=== PATIENT | female | born 1950 | race Caucasian/White ===

== ENCOUNTER 2017-05-21 08:48 | Day surgery (SDC) | payer MEDICARE, BC ==
[~2017-05-21 08:48] MED LIST: RINGER'S SOLUTION,LACTATED 1,000 ML IV PRN; ceFAZolin SODIUM 1 GM VIAL IV PRN
[2017-05-21] MEDS ORDERED: BUPIVACAINE HCL 50 ML VIAL IJ ONE (10:35)
[2017-05-21] MEDS ORDERED: RINGER'S SOLUTION,LACTATED 1,000 ML IV ONE (11:05)
[2017-05-21 12:55] VITALS: BP 116/55
== END 2017-05-21 08:49 | disposition home or self-care (01) ==
LOC: AMB 08:48
PROVIDERS: ATTEND Orthopaedic Surgery
PROC: 0MBP0ZZ Excision of Left Knee Bursa and Ligament, Open Approach (ICD-10-PCS; principal; 2017-05-21 11:30)
DX: M70.42 Prepatellar bursitis, left knee (principal); I10 Essential (primary) hypertension; R73.01 Impaired fasting glucose; J44.9 Chronic obstructive pulmonary disease, unspecified; F41.9 Anxiety disorder, unspecified; G47.33 Obstructive sleep apnea (adult) (pediatric); E66.9 Obesity, unspecified; Z68.41 Body mass index [BMI] 40.0-44.9, adult; Z86.73 Personal history of transient ischemic attack (TIA), and cerebral infarction without residual deficits; Z87.891 Personal history of nicotine dependence

== ENCOUNTER 2017-11-05 08:23 | Inpatient (IN) | payer MEDICARE, BC ==
[~2017-11-05 08:23] MED LIST changes: +MORPHINE SULFATE 15 MG TABLET.SA PO PRN; +ROPIVACAINE HCL/PF 100 MG, KETOROLAC TROMETHAMINE 30 MG, EPINEPHrine 0.2 MG in NORMAL S... IJ PRN; +TRANEXAMIC ACID 1,000 MG in NORMAL SALINE 100 ML IV PRN
[2017-11-05] MEDS ORDERED: RINGER'S SOLUTION,LACTATED 1,000 ML IV ONE ×4 (11:22→15:10)
--- NOTE | 2017-11-05 12:27 | POSTOP NO ---
Date of Surgery: 11/05/17 Patient Tolerated the Procedure: Well Post Operative Diagnosis/Procedures: Sourcing Coordinator: Nuno Frances PA-C Post-operative Diagnosis: Right knee degenerative joint disease Finding: Above Procedure: Right total knee arthroplasty Estimated Blood Loss: 150 mL Specimens: Bone for disposal
[2017-11-05] MEDS ORDERED: ACETAMINOPHEN 500 MG TABLET PO PRN (12:30)
[2017-11-05] MEDS ORDERED: PROMETHAZINE HCL 5 MG in DEXTROSE 5 % IN WATER 50 ML IV PRN ×2 (12:30)
[2017-11-05] MEDS ORDERED: MAGNESIUM HYDROXIDE 30 ML UDC PO PRN (12:30)
[2017-11-05] MEDS ORDERED: ONDANSETRON HCL/PF 2 MG/ML VIAL IV PRN (12:30)
[2017-11-05] MEDS ORDERED: ZOLPIDEM TARTRATE 5 MG TABLET PO PRN (12:30)
[2017-11-05] MEDS ORDERED: diphenhydrAMINE HCL 50 MG/ML VIAL IV PRN (12:30)
[2017-11-05] MEDS ORDERED: MAG HYDROX/ALUMINUM HYD/SIMETH 30 ML UDC PO PRN (12:30)
--- NOTE | 2017-11-05 12:30 | OR ---
Operative Report - Dictated Report Narrative: Date: 11/05/2017 Preoperative diagnosis: Right Knee degenerative joint disease. Postoperative diagnosis: Right Knee degenerative joint disease. Procedure: Right Total knee arthroplasty. Surgeon: Vega Arriaga M.D. Scenic Artist: Nuno Frances PA-C Anesthesia: General With regional block and local periarticular joint injection. Complications: None Specimens: Bone for disposal. Estimated blood loss: 150 mL Tourniquet time: 39 Minutes at 350 millimeters of mercury. Retained implants: Depuy Attune size 5 right lugged cemented posterior stabilized femoral component. Size 6 fixed-bearing cemented tibial platform. 5 by 5 millimeter posterior stabilized cross-linked tibial insert. 35 millimeter medialized patella button. Indications: Mrs. Max is a 67-year-old female who has had left and right knee pain and arthrosis. This patient was followed in my clinic for period of time with significant complaints of right knee pain consistent with arthritic changes. She had failed conservative measures including, but not limited to, activity modification, passage of time, medications, and other conservative measures. Patient wished to proceed with surgical treatment. The risks, benefits, and alternatives were discussed in clinic. The risks of , blood clots, bleeding, infection, nerve/tendon blood vessel/ injury, malposition of components, intraoperative fracture, postoperative limited range of motion, persistent pain, failure of components, and need for additional procedures. Patient wished to proceed consent was obtained after answering all questions. Procedure: After marking the correct extremity on the floor, the patient was taken to the operating room. A timeout was performed. IV antibiotics consisting of Ancef were administered prior to the procedure. A regional followed by general anesthetic was induced by anesthesia, per my request, on the operative table with all bony prominences well-padded. Perry catheter was placed, and a bump was placed under the operative side buttock. SCDs and MODESTA hose were utilized on the nonoperative leg. A well-padded tourniquet was applied to the operative thigh. The operative leg was then pre-scrubbed with alcohol prepped, and draped in a standard sterile fashion. After exsanguinating the extremity with an Esmarch bandage, the tourniquet was inflated. After marking out the anterior knee for standard incision centered over the patella, the skin was incised and dissected down to the joint retinaculum. The joint retinaculum was marked out as well as the horizontal axis of the patella, and a standard medial parapatellar arthrotomy was then made. The most proximal aspect of the quadriceps tendon and the patella tendon insertion were protected from release. A partial synovectomy was performed as well as a resection of the infrapatellar fat pad. The distal femoral fat pad proximal to the trochlea was also resected using cautery. The soft tissues were elevated off the medial aspect of the proximal tibia using a Lynn elevator ensuring that we did not transect the medial collateral ligament. Upon initial evaluation range of motion was approximately 0 degrees to 120 degrees of flexion. There were signs of advanced arthrosis in the medial, lateral, and patellofemoral joint spaces. There were large marginal osteophytes which were removed with a rongeur. The knee was hyperflexed and the patella was tucked laterally. Protecting the surrounding soft tissues with Homans, an entry drill was placed down the femoral canal using Whitesides line for guidance into the entry point. The intramedullary femoral alignment titus was utilized in order to cut the distal femur in 5 degrees of valgus resecting 10 millimeters of bone. Next the distal femur was sized to a size 5. A posterior referencing guide was utilized to place the distal femoral cutting block in 3 degrees of external rotation. This was pinned into place. The rotation was confirmed both visually and based on anatomic landmarks. The 4 in 1 cutting jig of the appropriate size was utilized in order to make all bony cuts. The angle wing was used to ensure no notching. Retractors were utilized in order to protect surrounding soft tissues. This cut did not result in any excessive notching. We then cut the box centered over the distal femur. This allowed for resection of the anterior and posterior cruciate ligaments. I then turned my attention to the preparation of the tibia. Using an extra medullary tibial alignment titus, 3 millimeters of bone was resected off the medial articular surface. This was made perpendicular to the mechanical axis of the joint with the alignment titus centered over the ankle mortise. The alignment titus was checked and was noted to be parallel to the mechanical axis, centered over the medial one third of the tibial tubercle, paralleling the anterior surface of the tibia. We then turned our attention to the remaining meniscus and soft tissues. These were removed while protecting the surrounding ligaments and soft tissues. The marginal osteophytes off the anterior, posterior, medial, lateral aspects of the femur and tibia were removed. The tibia was sized out to a size 6. Next the tibia was drilled and punched in an externally rotated position. Next the trial femur and a series of tibial inserts were utilized in order to allow for full extension and maximal flexion. It was found that a 5 millimeter insert gave the best range of motion and stability at multiple flexion points as well as at full extension there was less than 2 mm of gapping both medially and laterally. There is minimal anterior translation with the knee at 90 degrees of flexion and no signs of being able to dislocate the knee. The patella was then prepared. The initial thickness was 21 millimeters. This was reamed down to 11 millimeters parallel to the anterior surface of the patella. It was sized out to a size 35 medialized patella button. This was then drilled and trialed. Without any medial restraint the patella tracked appropriately and did not sublux or dislocate. At this point, it was felt these were the appropriate sized implants, and all trials were removed. The standard periarticular joint injection consisting of ropivacaine, Toradol, and epinephrine were injected into the periarticular joint tissues. The bony surfaces were thoroughly irrigated with a pulsatile- suction saline irrigation device. A bone plug from the prior resected anterior chamfer cut was placed into the drill hole at the distal femur. The bony surfaces were then dried in preparation for placement of the implants. The cement was vacuum mixed per the field care manager's instructions. The cement was placed on the dry bony surfaces and posterior aspect of the implants. The implants were impacted into place, removing all extruded cement. At this point anesthesia administered tranexamic acid per protocol intravenously. The knee was placed in extension with axial loading with the trial insert while the cement cured. While loading the joint it was noted there was significant acute increase in bloody drainage and what sounded like a giving way of the tourniquet and thus it was felt that we had a venous tourniquet at this point and thus the tourniquet was released. After releasing the tourniquet there was significant decrease in bloody drainage and there do not appear to be any signs of excessive isolated bleeding or pulsatile bleeding vessels. Once the cement cured, all remaining extruded cement was removed. The knee was placed through a range of motion with the trial insert to ensure appropriate range of motion and stability. Final range of motion was approximately 0 to 120 degrees. The knee was again thoroughly irrigated with pulsatile saline lavage. The final polyethylene insert was then impacted into place ensuring no retained soft tissues. The remaining periarticular joint injection was injected. A medium Hemovac drain was placed exiting superior laterally. The knee was then placed over a triangle and the arthrotomy was closed with interrupted #1 Vicryl after thoroughly irrigating the joint. The deep and subcutaneous tissues were closed with interrupted 0 and 3-0 Vicryl respectively. Skin was closed with a running subcutaneous 3-0 Monocryl and Prineo Dermabond dressing. 4 x 4's, Sof-Rol, and a full leg Connor wrap were applied. All sponge, needle, blade, and instrument counts were correct prior to closing the wounds. Postoperative condition: The patient was awoken and transferred to the postanesthesia care unit in stable condition. Plan is to be admitted to the inpatient medical/surgical floor postoperatively for 24 hours of IV antibiotics , physical therapy, occupational therapy, and medical comanagement. Patient will be weightbearing as tolerated with range of motion as tolerated. DVT prophylaxis will be with SCDs, MODESTA hose, and pharmacological anticoagulation. Anticipated hospital stay is approximately 1-3 days.
[2017-11-05] MEDS ORDERED: ALBUTEROL SULFATE/IPRATROPIUM 3 ML NEBU IH PRN (12:32)
[2017-11-05] MEDS ORDERED: HYDROmorphone HCL 2 MG/ML VIAL IV PRN (12:43)
[2017-11-05] MEDS ORDERED: ALBUTEROL SULFATE 2.5 MG/0.5 ML VIAL.NEB IH PRN (12:45)
--- NOTE | 2017-11-05 12:53 | OR ---
Anesthesia Procedure Note - Anesthesia Procedure Note Date of Service: 11/05/17 Narrative: Vital Signs - Last Taken Temp 36.7 C 11/05/17 10:10 Pulse 84 11/05/17 10:10 Resp 16 11/05/17 10:10 BP 122/56 11/05/17 10:10 Pulse Ox 93 11/05/17 10:10 O2 Oxygen Delivery Method Room Air 11/05/17 12:51 ANESTHESIA PROCEDURE NOTE Date of Procedure: 11/05/2017. Time of procedure: 1010. Performed by: Raymond Fuller CRNA Registered Pharmacy Technician: None. Preprocedure diagnosis: Right knee degenerative joint disease. Post procedure diagnosis: Same. Procedure: Right ultrasound guided adductor canal block for postoperative analgesia. Indications: The patient is a 67 -year-old female, requesting a right ultrasound -guided abductor canal block for postoperative analgesia related to right total knee arthroplasty. Findings: See below. Details of the procedure: The tissue over the intended target site was cleansed with ChloraPrepand draped in a sterile fashion. 2 ml Lidocaine 1 % was infiltrated to the skin and subcutaneous tissue at the intended target site. Under sterile technique and ultrasound guidance a 18-gauge Tuohy needle was inserted through the right sartorius muscle to the saphenous nerve just anterior and medial to the superficial femoral artery and vein. 15 mL's of 0.5% bupivacaine was injected after negative aspiration for blood. Needle tip and spread of local anesthetic surrounding the saphenous nerve was observed throughout the injection with real time ultrasound visualization. The Tuohy needle was then removed intact. No complications were noted. The images were retained in the Hospital medical database . EBL: Minimal. Fluids: N/A. Specimen: N/A. Post procedure condition: The patient tolerated the procedure well. No complications were noted. Thank you for this consultation. Raymond Fuller CRNA
[2017-11-05] MEDS: DEXTROSE 5%-LACTATED RINGERS 1,000 ML IV PRN (13:38)
[2017-11-05] MEDS: KETOROLAC TROMETHAMINE 15 MG/ML VIAL IV SCH ×2 (13:42→17:43)
[2017-11-05] MEDS: GABAPENTIN 100 MG CAPSULE PO SCH ×2 (13:58→17:43)
[2017-11-05] MEDS: oxyCODONE HCL/ACETAMINOPHEN 1 TAB TABLET PO PRN ×2 (14:56→19:50)
[2017-11-05] MEDS: ceFAZolin SODIUM 1 GM in DEXTROSE 5 % IN WATER 100 ML IV SCH ×4 (14:57→19:49)
[2017-11-05] MEDS: ZOLPIDEM TARTRATE 10 MG TABLET PO SCH (21:14)
[2017-11-05] MEDS: SENNOSIDES/DOCUSATE SODIUM 1 TAB TABLET PO SCH (21:14)
[2017-11-05] MEDS: MORPHINE SULFATE 15 MG TABLET.SA PO SCH (21:14)
[2017-11-05] MEDS: SIMVASTATIN 40 MG TABLET PO SCH (21:15)
[2017-11-05] MEDS ORDERED: NORMAL SALINE 500 ML IV PRN (21:28)
[2017-11-06] MEDS: DEXTROSE 5%-LACTATED RINGERS 1,000 ML IV PRN (00:41)
[2017-11-06] MEDS: KETOROLAC TROMETHAMINE 15 MG/ML VIAL IV SCH ×4 (00:42→19:28)
[2017-11-06] MEDS: ceFAZolin SODIUM 1 GM in DEXTROSE 5 % IN WATER 100 ML IV SCH ×2 (02:31)
[2017-11-06 06:27] LABS: Hematocrit 31.9 % (37.0-47.0); Hemoglobin 10.3 gm/dL (12.5-16.0); Mean Cell Volume 90.9 fl (78-100); Mean Corpuscular Hemoglobin 29.3 pg (27-31); Mean Corpuscular Hgb Conc 32.3 g/dl (32-36); Mean Platelet Volume 10.5 fl (6.0-9.5); Platelet Count 268 K/mm3 (150-450); Red Blood Count 3.51 M/mm3 (4.2-5.4); Red Cell Distribution Width 14.9 % (11.5-14.0); White Blood Count 12.1 K/mm3 (4.0-10.5)
[2017-11-06 06:57] LABS: Anion Gap 11.3 mmol/L (6.8-13.8); BUN/Creatinine Ratio 15.5 (9.0-21.6); Calcium * 8.4 mg/dL (7.9-10.9); Carbon Dioxide 29.9 mmol/L (24-32.6); Estimated Creat Clear 45.6; Potassium 4.2 mmol/L (3.4-4.6)
[2017-11-06] MEDS: MORPHINE SULFATE 15 MG TABLET.SA PO SCH ×2 (08:07→20:24)
[2017-11-06] MEDS: GABAPENTIN 100 MG CAPSULE PO SCH ×3 (08:07→16:32)
[2017-11-06] MEDS: VENLAFAXINE HCL 37.5 MG CAP.SR.24H PO SCH (08:07)
[2017-11-06] MEDS: LISINOPRIL 5 MG TABLET PO SCH (08:07)
[2017-11-06] MEDS: TIOTROPIUM BROMIDE 5 CAP INHALER IH SCH (08:08)
--- NOTE | 2017-11-06 08:24 | PN ---
Subjective - Date and Time Seen Date: 11/06/17 Time: 08:19 Subjective Narrative: Patient reports she is doing well. Feels a bit "groggy". Pain controlled. Has been able to ambulate with PT. Reports no nausea. No complaints. Objective Objective Narrative: Bandages C/D/I. N/V intact. N/V intact RLE. Calf supple. Joceline's negative. PF/DF ankle RLE. - Vitals Vitals: Last Vital Signs Temp 37 C 11/06/17 07:41 Pulse 88 11/06/17 08:07 Resp 18 11/06/17 07:41 BP 112/57 11/06/17 08:07 Pulse Ox 98 11/06/17 07:41 - Abnormal Lab Findings Abnormal Lab Findings: Abnormal Lab Results 11/06/17 11/06/17 Range/Units 06:17 06:17 WBC 12.1 H (4.0-10.5) K/mm3 RBC 3.51 L (4.2-5.4) M/mm3 Hgb 10.3 L (12.5-16.0) gm/dL Hct 31.9 L (37.0-47.0) % RDW 14.9 H (11.5-14.0) % MPV 10.5 H (6.0-9.5) fl Est GFR (Non-Af Amer) 50 L (60-130) mL/min Random Glucose 127 H (70-110) mg/dL - Exam Constitutional: Present: Alert, Oriented x3, Cooperative, No distress Cauti Physician Documentation - Urinary Catheter Management 2-way Urethral Date of Insertion: 11/05/17 Time of Insertion: 11:00 Assessment/Plan - Problems/Diagnosis (1) Status post total right knee replacement Problem: Acute Narrative: PT, pain control, anticoagulation, discussed with nursing to watch drain output for decreasing trend before pulling today (2) Acute blood loss anemia Problem: Acute Narrative: observation (3) History of stroke Problem: Chronic (4) Hypertension Problem: Chronic (5) Sleep apnea Problem: Chronic (6) Arthritis Problem: Acute
--- NOTE | 2017-11-06 08:26 | PN ---
Subjective - Date and Time Seen Date: 11/06/17 Time: 08:23 Subjective Narrative: Patient says she walked PT yesterday. Afebrile. Tmax 37.3 Objective - Review of Systems Generalized/Overall Review: Denies: Chills, Fever Respiratory: Denies: Cough, Shortness of Breath, Orthopnea Cardiac: Denies: Chest Pain, Edema, Palpitations Abdominal: Denies: Nausea, Vomiting Genitourinary Symptoms: Denies: Urgency, Frequency Musculoskeletal Complaints: Reports: Joint Pain - Vitals Vitals: Last Vital Signs Temp 37 C 11/06/17 07:41 Pulse 88 11/06/17 08:07 Resp 18 11/06/17 07:41 BP 112/57 11/06/17 08:07 Pulse Ox 98 11/06/17 07:41 - Abnormal Lab Findings Abnormal Lab Findings: Abnormal Lab Results 11/06/17 11/06/17 Range/Units 06:17 06:17 WBC 12.1 H (4.0-10.5) K/mm3 RBC 3.51 L (4.2-5.4) M/mm3 Hgb 10.3 L (12.5-16.0) gm/dL Hct 31.9 L (37.0-47.0) % RDW 14.9 H (11.5-14.0) % MPV 10.5 H (6.0-9.5) fl Est GFR (Non-Af Amer) 50 L (60-130) mL/min Random Glucose 127 H (70-110) mg/dL - Exam Constitutional: Present: Alert, Oriented x3, Cooperative ENT Exam: Present: hearing grossly normal Neck: Present: supple Respiratory: Present: decreased breath sounds, No rales, No wheezing Cardiovascular/Chest: Present: regular rate, rhythm, no JVD, no murmur Abdomen: Present: Normal bowel sounds, soft, nontender, nondistended Extremity: Present: no pedal edema, no calf tenderness Cauti Physician Documentation - Urinary Catheter Management 2-way Urethral Date of Insertion: 11/05/17 Time of Insertion: 11:00 Assessment/Plan - Problems/Diagnosis (1) Status post total right knee replacement Problem: Acute Narrative: POD # 1. continue with PT/OT (2) Acute blood loss anemia Problem: Acute Narrative: will monitor (3) History of stroke Problem: Chronic Narrative: continue home medications (4) Hypertension Problem: Chronic Qualifiers: Hypertension type: essential hypertension Qualified Code(s): I10 - Essential (primary) hypertension Narrative: continue with home medications (5) Sleep apnea Problem: Chronic Narrative: continue with CPAP
[2017-11-06] MEDS: oxyCODONE HCL/ACETAMINOPHEN 1 TAB TABLET PO PRN ×2 (11:28→19:29)
[2017-11-06] MEDS: ENOXAPARIN SODIUM 40 MG/0.4 ML SYRG SC SCH (11:29)
[2017-11-06] MEDS: ZOLPIDEM TARTRATE 10 MG TABLET PO SCH (20:24)
[2017-11-06] MEDS: SENNOSIDES/DOCUSATE SODIUM 1 TAB TABLET PO SCH (20:24)
[2017-11-06] MEDS: SIMVASTATIN 40 MG TABLET PO SCH (20:25)
[2017-11-07] MEDS: KETOROLAC TROMETHAMINE 15 MG/ML VIAL IV SCH ×2 (00:56→07:21)
[2017-11-07 09:32] LABS: Hematocrit 28.1 % (37.0-47.0); Hemoglobin 9.2 gm/dL (12.5-16.0); Mean Cell Volume 88.9 fl (78-100); Mean Corpuscular Hemoglobin 29.1 pg (27-31); Mean Corpuscular Hgb Conc 32.7 g/dl (32-36); Mean Platelet Volume 10.1 fl (6.0-9.5); Platelet Count 254 K/mm3 (150-450); Red Blood Count 3.16 M/mm3 (4.2-5.4); Red Cell Distribution Width 15.2 % (11.5-14.0); White Blood Count 13.4 K/mm3 (4.0-10.5)
[2017-11-07 09:39] LABS: Anion Gap 11.7 mmol/L (6.8-13.8); BUN/Creatinine Ratio 12.4 (9.0-21.6); Calcium * 8.4 mg/dL (7.9-10.9); Carbon Dioxide 28.3 mmol/L (24-32.6); Estimated Creat Clear 22.6
[2017-11-07 09:40] LABS: Total Cells Counted 100
[2017-11-07] MEDS: MORPHINE SULFATE 15 MG TABLET.SA PO SCH ×2 (09:43→21:36)
[2017-11-07] MEDS: LISINOPRIL 5 MG TABLET PO SCH (09:43)
[2017-11-07] MEDS: GABAPENTIN 100 MG CAPSULE PO SCH ×3 (09:43→17:40)
[2017-11-07] MEDS: VENLAFAXINE HCL 37.5 MG CAP.SR.24H PO SCH (09:43)
[2017-11-07] MEDS: TIOTROPIUM BROMIDE 5 CAP INHALER IH SCH (09:44)
[2017-11-07 10:16] LABS: Band 2 % (0-2.0); Basophil 1 % (0-1); Eosinophil 7 % (0-3); Lymphocyte 29 % (20-51); Monocyte 4 % (0-9); Neutrophil 57 % (42-75); Neutrophil # 7.6 K/mm3 (1.3-6.0); Platelet Estimate Normal (NORMAL); RBC Morphology Normal (NORMAL)
--- NOTE | 2017-11-07 10:58 | DS ---
(1) Status post total right knee replacement Problem: Acute (2) Acute blood loss anemia Problem: Acute (3) History of stroke Problem: Chronic (4) Hypertension Problem: Chronic Qualifiers: Hypertension type: essential hypertension Qualified Code(s): I10 - Essential (primary) hypertension (5) Sleep apnea Problem: Chronic (6) Arthritis Problem: Acute Description of Stay: Mrs. Max was admitted to the floor after undergoing right total knee arthroplasty. Tolerated this well. Was admitted to the floor postoperatively for 24 hours of IV antibiotics, pain control, medical comanagement, and occupational and physical therapy. OT and PT were consulted to assist with activities of daily living and ambulation. Was made weightbearing as tolerated with range of motion as tolerated. Pain was initially controlled with IV regimen. This was transitioned to oral once tolerating a by mouth intake. Was resumed on home diet and medications. Had a Perry catheter inserted and the operating room which was discontinued on postoperative day 1. A drain was placed intraoperatively into the knee which was discontinued on postoperative day 1. Lovenox SCD and MODESTA hose were utilized for DVT prophylaxis. Vital signs remained stable to the hospital course. Serial labs were obtained which showed a final hemoglobin of 9.2 grams. BMP was reviewed and was stable. Physical examination throughout the hospital course showed an extremity that had sensation that was intact to light touch, palpable pulses, a benign wound, motor intact to the toes, ankle, and knee. Knee range of motion was approximately 5 degrees to 75 degrees. Once an oral pain regimen was tolerated and physical therapy goals were met, it was felt that they were stable for discharge to home. Instructions: Continue with weightbearing as tolerated and range of motion as tolerated. It is OK to shower on the wound if it is not draining. If you note any drainage or for comfort you can cover with dry gauze and tape. Change every 2-3 days as needed. Continue with physical therapy. Resume home diet. Report any fever over 101.5 Fahrenheit, uncontrolled pain, increased drainage, foul odor of drainage, new or increased calf pain or shortness of breath, or any other significant complaints. A 325mg dialy aspirin will be started after finishing anticoagulation if not allergic. Continue with MODESTA hose on the operative extremity until instructed otherwise. No driving until instructed otherwise. Follow up in approximately 10-14 days. Procedures Performed: see notes below List Procedures: Right total knee arthroplasty Discharge Location: Home Disposition: Home self-care Condition: Good Discharge Activity: Activity as tolerated, Weight bearing, Other - with walker Discharge Diet: Low salt Chcf Therapy: Physicial Therapy Referrals: Shay Noble MD [Primary Care Provider] - Additional Patient Instructions (free text): Physical Therapy at [facility] on Sunday11/09/17 at 10:[address]am. Dr Arriaga follow up Orthopedic appt on Monday 11/27 at 10:45am. Prescriptions (Any new or edited meds): Enoxaparin Sodium [Lovenox] 40 mg SC Q24H #7 disp.syrin Morphine Sulfate [Ms Contin] 15 mg PO Q12H #20 tablet.sa oxyCODONE HCL/ACETAMINOPHEN [Percocet 5 MG/325 MG] 2 tab PO Q4H PRN #90 tablet PRN Reason: Moderate Pain (Pain Scale 4-6) Sennosides/Docusate Sodium [Senokot-S] 2 tab PO HS #20 tablet Complete Home Medications List: Complete Home Medication List: Lisinopril [Prinivil] 5 mg PO DAILY 08/14/12 Simvastatin [Zocor] 40 mg PO DAILY 08/14/12 Venlafaxine HCl [Effexor Xr] 37.5 mg PO DAILY 08/14/12 Tiotropium Elberta [Spiriva] 1 cap IH DAILY 08/21/13 Acetaminophen [Tylenol] 1,000 mg PO DAILY PRN 05/17/17 Albuterol Sulfate [Proair Hfa] 2 puff IH Q4H PRN 05/17/17 Gabapentin [Neurontin] 100 mg PO TID 05/17/17 Zolpidem Tartrate [Ambien] 10 mg PO HS 05/17/17 Albuterol Sulfate/Ipratropium [Duoneb 2.5-0.5MG/3ML Soln] 3 ml IH QID PRN Enoxaparin Sodium [Lovenox] 40 mg SC Q24H #7 disp.syrin 11/07/17 Morphine Sulfate [Ms Contin] 15 mg PO Q12H #20 tablet.sa 11/07/17 Sennosides/Docusate Sodium [Senokot-S] 2 tab PO HS #20 tablet 11/07/17 oxyCODONE HCL/ACETAMINOPHEN [Percocet 5 MG/325 MG] 2 tab PO Q4H PRN #90 tablet 11/07/17 Amb Orders for Discharge: PT Evaluation and Treatment Facility: [facility], Location: Rehabilitation Services
--- NOTE | 2017-11-07 11:00 | PN ---
Subjective - Date and Time Seen Date: 11/07/17 Time: 10:57 Subjective Narrative: Patient- I just feel tired this morning. Afebrile . Tmax 37. Objective - Review of Systems Generalized/Overall Review: Reports: Weakness, Fatigue Respiratory: Denies: Cough, Shortness of Breath Cardiac: Denies: Chest Pain, Edema, Palpitations Abdominal: Denies: Nausea, Vomiting Genitourinary Symptoms: Denies: Urgency, Frequency Musculoskeletal Complaints: Reports: Joint Pain - Vitals Vitals: Last Vital Signs Temp 36.7 C 11/07/17 10:39 Pulse 88 11/07/17 10:39 Resp 18 11/07/17 10:39 BP 134/76 11/07/17 10:39 Pulse Ox 94 11/07/17 10:39 - Abnormal Lab Findings Abnormal Lab Findings: Abnormal Lab Results 11/07/17 11/07/17 Range/Units 09:30 09:30 WBC 13.4 H (4.0-10.5) K/mm3 RBC 3.16 L (4.2-5.4) M/mm3 Hgb 9.2 L (12.5-16.0) gm/dL Hct 28.1 L (37.0-47.0) % RDW 15.2 H (11.5-14.0) % MPV 10.1 H (6.0-9.5) fl Eosinophils % (Manual) 7 H (0-3) % Neutrophils # (Manual) 7.6 H (1.3-6.0) K/mm3 Lymphocytes # (Manual) 3.9 H (1.5-3.5) k/mm3 Eosinophils # (Manual) 0.9 H (0.0-0.7) k/mm3 Potassium 5.0 H (3.4-4.6) mmol/L BUN 29 H D (3-23) mg/dL Creatinine 2.34 H D (0.4-1.4) mg/dL Est GFR (Non-Af Amer) 22 L D (60-130) mL/min Random Glucose 121 H (70-110) mg/dL - Exam Constitutional: Present: Alert, Oriented x3, Cooperative ENT Exam: Present: hearing grossly normal Neck: Present: supple Respiratory: Present: decreased breath sounds, No rales, No wheezing Cardiovascular/Chest: Present: regular rate, rhythm, no JVD, no murmur Abdomen: Present: Normal bowel sounds, soft, nontender, nondistended Extremity: Present: no calf tenderness, pedal edema Cauti Physician Documentation - Urinary Catheter Management 2-way Urethral Date of Insertion: 11/05/17 Time of Insertion: 11:00 Date of Removal: 11/06/17 Time of Removal: 08:20 Assessment/Plan - Problems/Diagnosis (1) ARF (acute renal failure) Problem: Acute Narrative: will do UA. likely NSAIDS induced. will restartt IVF. if Cr does not improve , will GURMEET and consider stopping ACEI. No NSAIDS please. (2) Hyperkalemia Problem: Acute Narrative: due to ARF. low K diet. if not better consider stopping AMBER I. (3) Status post total right knee replacement Problem: Acute Narrative: POD # 2. continue with PT/OT. (4) Acute blood loss anemia Problem: Acute Narrative: consider Iron supplemement . (5) History of stroke Problem: Chronic (6) Hypertension Problem: Chronic Qualifiers: Hypertension type: essential hypertension Qualified Code(s): I10 - Essential (primary) hypertension (7) Sleep apnea Problem: Chronic
[2017-11-07] MEDS: ENOXAPARIN SODIUM 40 MG/0.4 ML SYRG SC SCH (11:19)
[2017-11-07] MEDS: NORMAL SALINE 1,000 ML IV PRN ×2 (12:22→21:40)
[2017-11-07] MEDS ORDERED: LEVALBUTEROL HCL 1.25 MG/3 ML AMPUL IH SCH (21:00)
[2017-11-07] MEDS ORDERED: NORMAL SALINE 500 ML IV ONE (21:06)
[2017-11-07 21:15] LABS: Hematocrit 30.2 % (37.0-47.0); Mean Cell Volume 88.6 fl (78-100); Mean Corpuscular Hemoglobin 29.3 pg (27-31); Mean Corpuscular Hgb Conc 33.1 g/dl (32-36); Mean Platelet Volume 10.4 fl (6.0-9.5); Platelet Count 328 K/mm3 (150-450); Red Blood Count 3.41 M/mm3 (4.2-5.4); Red Cell Distribution Width 15.5 % (11.5-14.0); White Blood Count 18.5 K/mm3 (4.0-10.5)
[2017-11-07] MEDS: ZOLPIDEM TARTRATE 10 MG TABLET PO SCH (21:20)
[2017-11-07 21:29] LABS: Total Cells Counted 100
[2017-11-07 21:34] LABS: Albumin * 2.7 gm/dl (3.4-5.0); Anion Gap 16.1 mmol/L (6.8-13.8); Bilirubin, Total 0.4 mg/dL (0.0-1.1); Ca. Corrected For Albumin 9.5 mg/dL (8.4-10.2); Calcium * 8.8 mg/dL (7.9-10.9); Potassium 5.1 mmol/L (3.4-4.6); Total Protein 6.7 gm/dL (6.2-8.2); Troponin I 0.026 ng/ml (0.00-0.10)
[2017-11-07] MEDS: SENNOSIDES/DOCUSATE SODIUM 1 TAB TABLET PO SCH (21:36)
[2017-11-07] MEDS: SIMVASTATIN 40 MG TABLET PO SCH (21:37)
--- NOTE | 2017-11-07 21:57 | PN ---
Progess Note - Interim Date: 11/07/17 Time: 21:55 Narrative: 11/07/17 21:55 Subjective- Pt is a 67-yr-old WF who is POD # 2 for RT Total Knee Replacement. PMH is significant for COPD, CVA, HTN & Obstrutvie Sleep Apnea. Dr. Pearson called on pt approximately 2130. Pt got lightheaded, weak, and had assisted fall during transfer/ambulation to the toilet. Was found to be hypotensive with B/P in the 80s/50s, tachycardic in the 110s with SPO2 of 85% RA and noted to have laboured breathing. There was no loss of consciousness. CXR obtained which showed LT basilar atelectasis but no acute findings suggesting consolidation, infiltrates or pulmonary edema. Given nebulizer treatment & IV solumedrol, NS 500 bolus which improved BP to 100s/50s and followed by maintenance IVF @ 150 ml/hr. Labs showed WBC--> 18,500 with left shift, Hgb--> 10.0, BUN/CR--> 32/2.28, BNP--> 393, D-dimer--> 1.92, Troponin--> 0.026. The EKG did not show any evidence of STEMI. ABG showed compensated Resp. Acidosis and no hypoxemia. Objective On exam A & 0 x 3, LS reveal diminished LS throughout, BLE weakness requiring maximum assistance with transfers. RT knee surgical site intact without redness and warmth. Able to recuperate to POX 98% with 2 lnc, BP 130/70 after bolus. Assessment/Plan. 1.) Orthostatic Hypotension- Likely due to volume depletion following surgery, lack of enough maintenance IVF or inadequate oral intake. Given 500 ml bolus followed by NS@ 150ml/hr. Monitor close for fluid overload signs. 2.) Acute Kidney Injury-likely Pre-renal due to blood loss, dehydration, NSAIDs. Continue with IVF. BMP in am. Laboratory Tests 11/06/17 11/07/17 11/07/17 06:17 09:30 21:11 Creatinine 1.16 2.34 H D 2.28 H 3.) Anemia due to blood loss- Hgb 14.0 on DOA Now 9.2--> 10.0.? contribution to hypoxia. Monitor CBC. 4.) Hypoxia- Known hx of COPD, JOSE. CXR did not have any acute findings to suggest pneumonia, effusion or pulmonary edema. However, there was LT basilar atelectasis. Will have nursing push IS q 2 hours w/a, start Xopenex neb treatments, O2 supplementation, & encourage ambulation. 5.) Elevated [id number] false positive for Pulmonary Embolism due to recent surgery. No persistent hypoxia and tachycardia, BP improved. No sign of ACS. On Anticoagulants- Lovenox for post op VTE prophylaxis but may consider changing to heparin due to renal impairment or Lovenox dosage reduction. 11/08/17 00:15
[2017-11-07 22:14] LABS: Basophil 1 % (0-1); Eosinophil 1 % (0-3); Lymphocyte 12 % (20-51); Monocyte 7 % (0-9); Neutrophil 79 % (42-75); Neutrophil # 14.6 K/mm3 (1.3-6.0)
[2017-11-07 22:17] LABS: Platelet Estimate Normal (NORMAL); RBC Morphology Normal (NORMAL); Toxic Granulation 1+
[2017-11-08] MEDS: LEVALBUTEROL HCL 1.25 MG/3 ML AMPUL IH SCH ×4 (00:22→18:40)
[2017-11-08] MEDS: NORMAL SALINE 1,000 ML IV PRN ×3 (01:05→21:41)
[2017-11-08 04:27] LABS: Hematocrit 27.4 % (37.0-47.0); Mean Cell Volume 88.7 fl (78-100); Mean Corpuscular Hemoglobin 29.1 pg (27-31); Mean Corpuscular Hgb Conc 32.8 g/dl (32-36); Mean Platelet Volume 10.6 fl (6.0-9.5); Platelet Count 253 K/mm3 (150-450); Red Blood Count 3.09 M/mm3 (4.2-5.4); Red Cell Distribution Width 15.3 % (11.5-14.0); White Blood Count 14.8 K/mm3 (4.0-10.5)
[2017-11-08 04:37] LABS: Total Cells Counted 100
[2017-11-08 04:47] LABS: Anion Gap 13.1 mmol/L (6.8-13.8); BUN/Creatinine Ratio 18.2 (9.0-21.6); Calcium * 8.3 mg/dL (7.9-10.9); Carbon Dioxide 25.7 mmol/L (24-32.6); Potassium 4.8 mmol/L (3.4-4.6)
[2017-11-08 04:59] LABS: Basophil 1 % (0-1); Hypersegmented Polys 1+; Lymphocyte 18 % (20-51); Microcytosis 3+; Monocyte 10 % (0-9); Neutrophil 71 % (42-75); Neutrophil # 10.5 K/mm3 (1.3-6.0); Platelet Estimate Increased (NORMAL); Rouleaux 3+; Toxic Granulation 2+
[2017-11-08] MEDS: oxyCODONE HCL/ACETAMINOPHEN 1 TAB TABLET PO PRN ×4 (08:05→20:50)
[2017-11-08] MEDS: VENLAFAXINE HCL 37.5 MG CAP.SR.24H PO SCH (08:31)
[2017-11-08] MEDS: GABAPENTIN 100 MG CAPSULE PO SCH ×3 (08:32→16:47)
[2017-11-08] MEDS: MORPHINE SULFATE 15 MG TABLET.SA PO SCH ×2 (08:32→20:51)
[2017-11-08] MEDS: LISINOPRIL 5 MG TABLET PO SCH (08:32)
[2017-11-08] MEDS: TIOTROPIUM BROMIDE 5 CAP INHALER IH SCH (08:32)
--- NOTE | 2017-11-08 10:03 | PN ---
Subjective - Date and Time Seen Date: 11/08/17 Time: 09:54 Subjective Narrative: Had rapid response called last night for lightheadedness/dizziness and assisted fall. Objective - Review of Systems Generalized/Overall Review: Reports: Fatigue. Denies: Chills, Fever Respiratory: Denies: Cough, Shortness of Breath Cardiac: Denies: Chest Pain, Edema, Palpitations Abdominal: Denies: Nausea, Vomiting Genitourinary Symptoms: Denies: Urgency, Frequency Musculoskeletal Complaints: Reports: Joint Pain Neurological: Reports: Other - dizziness/lighteadedness - Vitals Vitals: Last Vital Signs Temp 36.9 C 11/08/17 06:55 Pulse 93 11/08/17 08:32 Resp 14 11/08/17 08:09 BP 117/57 11/08/17 08:32 Pulse Ox 96 11/08/17 08:09 - Abnormal Lab Findings Abnormal Lab Findings: Abnormal Lab Results 11/07/17 11/07/17 11/07/17 Range/Units 09:30 21:11 21:11 WBC (4.0-10.5) K/mm3 RBC (4.2-5.4) M/mm3 Hgb (12.5-16.0) gm/dL Hct (37.0-47.0) % RDW (11.5-14.0) % MPV (6.0-9.5) fl Neutrophils % (Manual) (42-75) % Lymphocytes % (Manual) (20-51) % Monocytes % (Manual) (0-9) % Eosinophils % (Manual) 7 H (0-3) % Neutrophils # (Manual) 7.6 H (1.3-6.0) K/mm3 Lymphocytes # (Manual) 3.9 H (1.5-3.5) k/mm3 Monocytes # (Manual) (0.0-1.0) k/mm3 Eosinophils # (Manual) 0.9 H (0.0-0.7) k/mm3 Basophils # (Manual) (0.0-0.1) k/mm3 Platelet Estimate (NORMAL) D-Dimer 1.92 H (0.19-0.49) mg/L pO2 (83.0-108.0) mmHg Base Excess (-2.0-3.0) mmol/L ABG pH (7.35-7.45) Potassium 5.1 H (3.4-4.6) mmol/L Anion Gap 16.1 H (6.8-13.8) mmol/L BUN 32 H (3-23) mg/dL Creatinine 2.28 H (0.4-1.4) mg/dL Est GFR (Non-Af Amer) 23 L (60-130) mL/min Random Glucose 134 H (70-110) mg/dL AST 63 H (0-48) U/L B-Natriuretic Peptide 393 H (5-325) pg/mL Albumin 2.7 L (3.4-5.0) gm/dl 11/07/17 11/07/17 11/08/17 Range/Units 21:11 21:30 04:00 WBC 18.5 H D 14.8 H (4.0-10.5) K/mm3 RBC 3.41 L 3.09 L (4.2-5.4) M/mm3 Hgb 10.0 L 9.0 L (12.5-16.0) gm/dL Hct 30.2 L 27.4 L (37.0-47.0) % RDW 15.5 H 15.3 H (11.5-14.0) % MPV 10.4 H 10.6 H (6.0-9.5) fl Neutrophils % (Manual) 79 H (42-75) % Lymphocytes % (Manual) 12 L 18 L (20-51) % Monocytes % (Manual) 10 H (0-9) % Eosinophils % (Manual) (0-3) % Neutrophils # (Manual) 14.6 H 10.5 H (1.3-6.0) K/mm3 Lymphocytes # (Manual) (1.5-3.5) k/mm3 Monocytes # (Manual) 1.3 H 1.5 H (0.0-1.0) k/mm3 Eosinophils # (Manual) (0.0-0.7) k/mm3 Basophils # (Manual) 0.2 H (0.0-0.1) k/mm3 Platelet Estimate Increased H (NORMAL) D-Dimer (0.19-0.49) mg/L pO2 82.7 L (83.0-108.0) mmHg Base Excess -3.7 L (-2.0-3.0) mmol/L ABG pH 7.32 L (7.35-7.45) Potassium (3.4-4.6) mmol/L Anion Gap (6.8-13.8) mmol/L BUN (3-23) mg/dL Creatinine (0.4-1.4) mg/dL Est GFR (Non-Af Amer) (60-130) mL/min Random Glucose (70-110) mg/dL AST (0-48) U/L B-Natriuretic Peptide (5-325) pg/mL Albumin (3.4-5.0) gm/dl 11/08/17 Range/Units 04:00 WBC (4.0-10.5) K/mm3 RBC (4.2-5.4) M/mm3 Hgb (12.5-16.0) gm/dL Hct (37.0-47.0) % RDW (11.5-14.0) % MPV (6.0-9.5) fl Neutrophils % (Manual) (42-75) % Lymphocytes % (Manual) (20-51) % Monocytes % (Manual) (0-9) % Eosinophils % (Manual) (0-3) % Neutrophils # (Manual) (1.3-6.0) K/mm3 Lymphocytes # (Manual) (1.5-3.5) k/mm3 Monocytes # (Manual) (0.0-1.0) k/mm3 Eosinophils # (Manual) (0.0-0.7) k/mm3 Basophils # (Manual) (0.0-0.1) k/mm3 Platelet Estimate (NORMAL) D-Dimer (0.19-0.49) mg/L pO2 (83.0-108.0) mmHg Base Excess (-2.0-3.0) mmol/L ABG pH (7.35-7.45) Potassium 4.8 H (3.4-4.6) mmol/L Anion Gap (6.8-13.8) mmol/L BUN 30 H (3-23) mg/dL Creatinine 1.65 H D (0.4-1.4) mg/dL Est GFR (Non-Af Amer) 33 L D (60-130) mL/min Random Glucose 131 H (70-110) mg/dL AST (0-48) U/L B-Natriuretic Peptide (5-325) pg/mL Albumin (3.4-5.0) gm/dl - Exam Constitutional: Present: Alert, Oriented x3, Cooperative ENT Exam: Present: hearing grossly normal Neck: Present: supple Respiratory: Present: decreased breath sounds, No rales, No wheezing Cardiovascular/Chest: Present: regular rate, rhythm, no JVD, no murmur Abdomen: Present: Normal bowel sounds, soft, nontender, nondistended Extremity: Present: no calf tenderness, pedal edema Cauti Physician Documentation - Urinary Catheter Management 2-way Urethral Date of Insertion: 11/05/17 Time of Insertion: 11:00 Date of Removal: 18 Time of Removal: 08:20 Assessment/Plan - Problems/Diagnosis (1) Orthostatic hypotension Problem: Acute Narrative: continue with IVF. (2) ARF (acute renal failure) Problem: Acute Narrative: Cr improving. continue with VF and no NSAIDS. posible discharge from IM point of view if Cr is baseline or near her baseline if [place]/PT deems she can be dischaged. (3) Hyperkalemia Problem: Acute Narrative: due to TONO . improved. continue with IVF (4) Status post total right knee replacement Problem: Acute Narrative: POD # 3. afebrile. continue with PT/OT. (5) Acute blood loss anemia Problem: Acute Narrative: stable now. (6) History of stroke Problem: Chronic (7) Hypertension Problem: Chronic Qualifiers: Hypertension type: essential hypertension Qualified Code(s): I10 - Essential (primary) hypertension (8) Sleep apnea Problem: Chronic
[2017-11-08] MEDS: FERROUS SULFATE 325 MG TABLET PO SCH (10:41)
[2017-11-08] MEDS: ENOXAPARIN SODIUM 40 MG/0.4 ML SYRG SC SCH (10:41)
--- NOTE | 2017-11-08 13:18 | PN ---
Subjective - Date and Time Seen Date: 11/08/17 Time: 08:15 Subjective Narrative: Had hypotension episode last night that resolved. Labs typical post-op other than decreased renal function. She reports some weakness in her right leg but not an acute change from yesterday. No other complaints. She feels like she could go home. Objective - Vitals Vitals: Last Vital Signs Temp 36.7 C 11/08/17 11:27 Pulse 83 11/08/17 11:27 Resp 20 11/08/17 11:27 BP 119/76 11/08/17 11:27 Pulse Ox 90 11/08/17 11:27 - Abnormal Lab Findings Abnormal Lab Findings: Abnormal Lab Results 11/07/17 11/07/17 11/07/17 Range/Units 21:11 21:11 21:11 WBC 18.5 H D (4.0-10.5) K/mm3 RBC 3.41 L (4.2-5.4) M/mm3 Hgb 10.0 L (12.5-16.0) gm/dL Hct 30.2 L (37.0-47.0) % RDW 15.5 H (11.5-14.0) % MPV 10.4 H (6.0-9.5) fl Neutrophils % (Manual) 79 H (42-75) % Lymphocytes % (Manual) 12 L (20-51) % Monocytes % (Manual) (0-9) % Neutrophils # (Manual) 14.6 H (1.3-6.0) K/mm3 Monocytes # (Manual) 1.3 H (0.0-1.0) k/mm3 Basophils # (Manual) 0.2 H (0.0-0.1) k/mm3 Platelet Estimate (NORMAL) D-Dimer 1.92 H (0.19-0.49) mg/L pO2 (83.0-108.0) mmHg Base Excess (-2.0-3.0) mmol/L ABG pH (7.35-7.45) Potassium 5.1 H (3.4-4.6) mmol/L Anion Gap 16.1 H (6.8-13.8) mmol/L BUN 32 H (3-23) mg/dL Creatinine 2.28 H (0.4-1.4) mg/dL Est GFR (Non-Af Amer) 23 L (60-130) mL/min Random Glucose 134 H (70-110) mg/dL AST 63 H (0-48) U/L B-Natriuretic Peptide 393 H (5-325) pg/mL Albumin 2.7 L (3.4-5.0) gm/dl 11/07/17 11/08/17 11/08/17 Range/Units 21:30 04:00 04:00 WBC 14.8 H (4.0-10.5) K/mm3 RBC 3.09 L (4.2-5.4) M/mm3 Hgb 9.0 L (12.5-16.0) gm/dL Hct 27.4 L (37.0-47.0) % RDW 15.3 H (11.5-14.0) % MPV 10.6 H (6.0-9.5) fl Neutrophils % (Manual) (42-75) % Lymphocytes % (Manual) 18 L (20-51) % Monocytes % (Manual) 10 H (0-9) % Neutrophils # (Manual) 10.5 H (1.3-6.0) K/mm3 Monocytes # (Manual) 1.5 H (0.0-1.0) k/mm3 Basophils # (Manual) (0.0-0.1) k/mm3 Platelet Estimate Increased H (NORMAL) D-Dimer (0.19-0.49) mg/L pO2 82.7 L (83.0-108.0) mmHg Base Excess -3.7 L (-2.0-3.0) mmol/L ABG pH 7.32 L (7.35-7.45) Potassium 4.8 H (3.4-4.6) mmol/L Anion Gap (6.8-13.8) mmol/L BUN 30 H (3-23) mg/dL Creatinine 1.65 H D (0.4-1.4) mg/dL Est GFR (Non-Af Amer) 33 L D (60-130) mL/min Random Glucose 131 H (70-110) mg/dL AST (0-48) U/L B-Natriuretic Peptide (5-325) pg/mL Albumin (3.4-5.0) gm/dl - Exam Exam Narrative: RLE - sensation intact, palp DP, minimal drainage from wound, no gross deformity , wearing knee high ronal hose and no knee compression even though I ordered thigh high stockings, knee effusion - not excessive, normal post-op swelling, no sign of infection, no palpable quad/patella tendon defect, patella centered, firing quadriceps, quad strength 3/5 Constitutional: Present: Alert, Oriented x3 Cauti Physician Documentation - Urinary Catheter Management 2-way Urethral Date of Insertion: 11/05/17 Time of Insertion: 11:00 Date of Removal: 11/06/17 Time of Removal: 08:20 Assessment/Plan Plan Narrative: From an orthopedic standpoint OK to DC home when meets PT goals. IM would like to continue to monitor renal function overnight. Continue orthopedic care and see IM note for further recs. - Problems/Diagnosis (1) ARF (acute renal failure) Problem: Acute (2) Acute blood loss anemia Problem: Acute (3) Hyperkalemia Problem: Acute (4) Orthostatic hypotension Problem: Acute (5) Status post total right knee replacement Problem: Acute (6) History of stroke Problem: Chronic (7) Hypertension Problem: Chronic Qualifiers: Hypertension type: essential hypertension Qualified Code(s): I10 - Essential (primary) hypertension (8) Sleep apnea Problem: Chronic
[2017-11-08] MEDS: SIMVASTATIN 40 MG TABLET PO SCH (20:51)
[2017-11-08] MEDS: ZOLPIDEM TARTRATE 10 MG TABLET PO SCH (20:51)
[2017-11-08] MEDS: SENNOSIDES/DOCUSATE SODIUM 1 TAB TABLET PO SCH (20:51)
[2017-11-09] MEDS: oxyCODONE HCL/ACETAMINOPHEN 1 TAB TABLET PO PRN ×2 (00:56→07:43)
[2017-11-09] MEDS: LEVALBUTEROL HCL 1.25 MG/3 ML AMPUL IH SCH ×3 (01:58→14:05)
[2017-11-09 05:51] LABS: Hematocrit 26.5 % (37.0-47.0); Hemoglobin 8.5 gm/dL (12.5-16.0); Mean Cell Volume 90.8 fl (78-100); Mean Corpuscular Hemoglobin 29.1 pg (27-31); Mean Corpuscular Hgb Conc 32.1 g/dl (32-36); Mean Platelet Volume 10.2 fl (6.0-9.5); Neutrophil # 6.3 K/mm3 (1.3-6.0); Neutrophil % 64.7 % (42-75.0); Platelet Count 241 K/mm3 (150-450); Red Blood Count 2.92 M/mm3 (4.2-5.4); Red Cell Distribution Width 15.4 % (11.5-14.0); White Blood Count 9.7 K/mm3 (4.0-10.5)
[2017-11-09 06:12] LABS: Anion Gap 12.9 mmol/L (6.8-13.8); BUN/Creatinine Ratio 18.3 (9.0-21.6); Calcium * 8.4 mg/dL (7.9-10.9); Carbon Dioxide 25.7 mmol/L (24-32.6); Estimated Creat Clear 50.8; Potassium 4.6 mmol/L (3.4-4.6)
--- NOTE | 2017-11-09 06:45 | PN ---
Progess Note - Interim Date: 11/09/17 Time: 06:38 Narrative: 11/09/17 06:38 Pt labs on kidney function shows back to baseline. Her BPs have been stable since the night of 11/07. She has been tolerating activity well. She is stable to be discharged home from IM point of view. Hgb 8.5 but likely due to dilution from IVF which was necessary improve her b/p/ volume status. May have a follow- up labs next week of a CBC & BMP.
[2017-11-09] MEDS: NORMAL SALINE 1,000 ML IV PRN (07:44)
[2017-11-09] MEDS: VENLAFAXINE HCL 37.5 MG CAP.SR.24H PO SCH (08:48)
[2017-11-09] MEDS: MORPHINE SULFATE 15 MG TABLET.SA PO SCH (08:48)
[2017-11-09] MEDS: LISINOPRIL 5 MG TABLET PO SCH (08:48)
[2017-11-09] MEDS: GABAPENTIN 100 MG CAPSULE PO SCH (08:48)
[2017-11-09] MEDS: FERROUS SULFATE 325 MG TABLET PO SCH (08:48)
[2017-11-09] MEDS: TIOTROPIUM BROMIDE 5 CAP INHALER IH SCH (08:49)
[2017-11-09] MEDS: ENOXAPARIN SODIUM 40 MG/0.4 ML SYRG SC SCH (11:13)
--- NOTE | 2017-11-09 11:35 | DS ---
(1) Status post total right knee replacement Problem: Acute (2) Acute blood loss anemia Problem: Acute (3) History of stroke Problem: Chronic (4) Hypertension Problem: Chronic Qualifiers: Hypertension type: essential hypertension Qualified Code(s): I10 - Essential (primary) hypertension (5) Sleep apnea Problem: Chronic (6) Arthritis Problem: Acute Description of Stay: See previous discharge summary. Due to lab abnormalities with renal insufficiency and hypotensive episode she was kept at the request of internal medicine for continued observation fluids. Her renal function improved overall status was stable. She did well with physical therapy internal medicine cultures stable for discharge today. See previous discharge summary for plan of care. Procedures Performed: see notes below List Procedures: Right total knee arthroplasty Discharge Location: Home Disposition: Home self-care Condition: Good Discharge Activity: Activity as tolerated, Weight bearing Discharge Diet: General/regular food Referrals: Shay Noble MD [Primary Care Provider] - Problem Oriented Discharge Instructions to Patient/Family: Total Knee Replacement, Care After, [id number] Additional Patient Instructions (free text): Physical Therapy at [facility] on Sunday11/09/17 at 10:45am. Dr Arriaga follow up Orthopedic appt on Monday 11/27 at 10:45am. Prescriptions (Any new or edited meds): Enoxaparin Sodium [Lovenox] 40 mg SC Q24H #7 disp.syrin Morphine Sulfate [Ms Contin] 15 mg PO Q12H #20 tablet.sa oxyCODONE HCL/ACETAMINOPHEN [Percocet 5 MG/325 MG] 2 tab PO Q4H PRN #90 tablet PRN Reason: Moderate Pain (Pain Scale 4-6) Sennosides/Docusate Sodium [Senokot-S] 2 tab PO HS #20 tablet Complete Home Medications List: Complete Home Medication List: Lisinopril [Prinivil] 5 mg PO DAILY 08/14/12 Simvastatin [Zocor] 40 mg PO DAILY 08/14/12 Venlafaxine HCl [Effexor Xr] 37.5 mg PO DAILY 08/14/12 Tiotropium Petroleum [Spiriva] 1 cap IH DAILY 08/21/13 Acetaminophen [Tylenol] 1,000 mg PO DAILY PRN 05/17/17 Albuterol Sulfate [Proair Hfa] 2 puff IH Q4H PRN 05/17/17 Gabapentin [Neurontin] 100 mg PO TID 05/17/17 Zolpidem Tartrate [Ambien] 10 mg PO HS 05/17/17 Albuterol Sulfate/Ipratropium [Duoneb 2.5-0.5MG/3ML Soln] 3 ml IH QID PRN Enoxaparin Sodium [Lovenox] 40 mg SC Q24H #7 disp.syrin 11/07/17 Morphine Sulfate [Ms Contin] 15 mg PO Q12H #20 tablet.sa 11/07/17 Sennosides/Docusate Sodium [Senokot-S] 2 tab PO HS #20 tablet 11/07/17 oxyCODONE HCL/ACETAMINOPHEN [Percocet 5 MG/325 MG] 2 tab PO Q4H PRN #90 tablet 11/07/17 Amb Orders for Discharge: PT Evaluation and Treatment Facility: [facility], Location: Rehabilitation Services
[2017-11-09 13:47] VITALS: BP 124/74
== END 2017-11-09 13:55 | disposition home or self-care (01) | DRG 470 ==
LOC: MS 08:23 → EDSTATUS 11:45
PROVIDERS: ADMIT Orthopaedic Surgery; ATTEND Orthopaedic Surgery
PROC: 0SRC0J9 Replacement of Right Knee Joint with Synthetic Substitute, Cemented, Open Approach (ICD-10-PCS; principal; 2017-11-05)
PROC: 4A033R1 Measurement of Arterial Saturation, Peripheral, Percutaneous Approach (ICD-10-PCS; 2017-11-07)
DX: E78.5 Hyperlipidemia, unspecified; G47.30 Sleep apnea, unspecified; N28.9 Disorder of kidney and ureter, unspecified; I95.9 Hypotension, unspecified; M17.11 Unilateral primary osteoarthritis, right knee; I10 Essential (primary) hypertension; D62 Acute posthemorrhagic anemia; Z95.5 Presence of coronary angioplasty implant and graft